=== PATIENT | female | born 1970 | race Caucasian/White ===

== ENCOUNTER 2017-10-11 12:45 | Emergency (ER) | payer OTHER ==
[~2017-10-11] VITALS: Ht 160 cm; Wt 56.7 kg
[2017-10-11 12:52] VITALS: BP 145/84
[2017-10-11] MEDS ORDERED: OXYCODONE HCL 55 MG PO (16:57)
[2017-10-11 17:25] VITALS: BP 136/75
== END 2017-10-11 17:28 | disposition home or self-care (01) ==
LOC: ER 12:45 → EROBS 15:56 → ER 17:28
DX: S43.085A Other dislocation of left shoulder joint, initial encounter (principal); X50.1XXA Overexertion from prolonged static or awkward postures, initial encounter; Y93.89 Activity, other specified; Y92.89 Other specified places as the place of occurrence of the external cause; Y99.8 Other external cause status